=== PATIENT | male | born 1970 | race Caucasian/White ===

== ENCOUNTER 2019-03-31 11:09 | Outpatient (CLI) | payer OTHER, SELFPAY ==
--- NOTE | 2019-03-31 11:21 | XR_ITS ---
WS: [id number] LUMBAR SPINE: 3 VIEWS TECHNIQUE: AP, lateral and L5-S1 spot. HISTORY: LUMBAR BACK PAIN COMPARISON: None available. Mild straightening of the normal lumbar lordosis. L5 retrolisthesis by 3.2 mm. Disc space narrowing i s mild at L5-S1. Endplate osteophytes throughout the lumbar spine and the lower thoracic spine. No fr acture. Bilateral facet joint arthropathy at L5-S1, greatest on the RIGHT. SI joints are symmetric bilaterally. No soft tissue abnormalities. XR/XR lumbar spine 2-3V* [id number] IMPRESSION: 1. No lumbar spine fracture. 2. Mild lumbar spondylosis. 3. L5 retrolisthesis by 3.2 mm.
--- NOTE | 2019-03-31 11:21 | XR_ITS ---
WS: [id number] THORACIC SPINE TECHNIQUE: AP and lateral views are performed. HISTORY: BACK PAIN THORACIC REGION COMPARISON: 07/23/2016 Disc space narrowing and endplate osteophytes throughout the thoracic spine. Most significant in the mid to lower thoracic spine. Very similar in appearance to the prior examination. There is very sligh t LEFT convex curvature of the upper thoracic spine. Pedicles are all identified. XR/XR thoracic spine 3V* [id number] IMPRESSION: 1. No thoracic spine fracture. 2. Moderate to severe spondylitic changes with no progression since 07/23/2016.
== END 2019-03-31 11:10 | disposition home or self-care (01) ==
LOC: RAD 11:13
PROVIDERS: Family Provider Family Medicine; PCP Family Medicine; Visit Provider Family Medicine
DX: M47.896 Other spondylosis, lumbar region (principal); M54.6 Pain in thoracic spine; M54.5 Low back pain
CPT/HCPCS: 72072; 72100

== ENCOUNTER 2019-04-14 13:24 | Outpatient (RCR) | payer OTHER, SELFPAY | END 2019-05-06 23:59 | disposition home or self-care (01) | LOC: SPT 13:24 | PROVIDERS: Family Provider Family Medicine; PCP Family Medicine; Referring Provider Family Medicine; Visit Provider Family Medicine | DX: M54.5 Low back pain (principal) | CPT/HCPCS: 97161 ==

== ENCOUNTER 2019-05-07 06:00 | Outpatient (RCR) | payer OTHER, SELFPAY | END 2019-06-02 23:00 | disposition home or self-care (01) | LOC: SPT 06:00 | PROVIDERS: Family Provider Family Medicine; PCP Family Medicine; Referring Provider Family Medicine; Visit Provider Family Medicine | DX: Z01.89 Encounter for other specified special examinations (principal) ==

== ENCOUNTER 2020-11-04 19:26 | Emergency (ER) | payer OTHER, SELFPAY ==
[2020-11-04 19:43] VITALS: BP 143/82; PULSE 65; TEMP 36.7; O2SAT 95; BMI 41.8
[2020-11-04 20:57] VITALS: BP 130/95; PULSE 56; RESP 18; O2SAT 97
--- NOTE | 2020-11-04 20:57 | ECG_ITS ---
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
--- NOTE | 2020-11-04 21:28 | ED_ITS ---
HPI - General Adult General: Chief complaint: Chest Pain Stated complaint: BACK PAIN RADIATING TO CHEST Time Seen by Provider: 11/04/20 20:57 History of Present Illness: HPI narrative: CC: Back pain HPI: [50]yo patient w/ hx of chronic thoracic back pain x 1 year presenting to the ED with acutely worsening chronic pain. 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 Since then, patient has still had similar pain. Patient went to see multiple providers including sports medicine and physical therapy with minimal improvement in symptoms. Patient has an appointment with his specialist in November but mehdi use of the worsening pain decided come to emergency for further evaluation. Today, patients denies trauma to the back, fever/chill/IVDU, LE weakness, saddle anesthesia/bowel incontinence/bladder incontinence, or hx of recent weight loss or cancer. In addition, he does not have a history of kidney stone or urinary symptoms/hx of UTI. Onset: chronic, acutely worsening symptoms x 1 month Duration: ongoing Location: Thoracic back pain radiating to the chest Severity: moderate Review of Systems Narrative: Constitutional: No fever, no chills. HEENT: No vision changes CV: No chest pain, no palpitations PULM: No cough, no dyspnea. GI: No abdominal pain, no N/V/D. : No dysuria MSKEL: No edema SKIN: No new rashes, no lesions. NEURO: No headache, no focal weakness. HEME: No visible bruises PSYCH: Normal mood BACK: +Thoracic back pain radiating to the chest [facility] ED PFSH: Social History (Updated 11/13/19 @ 12:42 by Gypsy Hoang LPN) Smoking and tobacco status: current every day smoker smokeless tobacco Alcohol intake: never Physical Exam Narrative: EXAM NARRATIVE: Head: Atraumatic Eyes: PERRL, conjunctiva without injection ENT: Mucous membrane moist NECK: Supple without lymphadenopathy LUNGS: CTA CV: RRR ABDOMEN: Soft, nontender in all quadrants, no guarding or rebound tenderness EXTREMITY: Normal ROM, 5/5 strength in hip/knee/ankle f/e bilaterally, sensation intact bilaterally in the LE SKIN: No rash or erythema NEURO: Awake and alert. No focal motor deficits. PSYCH: Normal mood and affect. : No saddle anesthesia BACK: No midline tenderness, no step off, obvious deformity, hip stable, thoracic T12 tenderness to palpation, no step-off, no obvious deformity, no induration/swelling or fluctuance Course Vital Signs: Vital signs: Vital Signs Temperature 98.1 F 11/04/20 19:43 Pulse Rate 62 11/04/20 23:08 Respiratory Rate 18 11/04/20 23:08 Blood Pressure 120/77 11/04/20 23:08 Pulse Oximetry 97 11/04/20 23:08 MDM - General Adult MDM Narrative: Medical decision making narrative: [50]yo patient w/ hx of chronic thoracic bakc pain presenting to the ED with acute worsening over the last month. Neurological exam including LE exam intact. The Patient is able to bear weight on legs and ambulate with moderate pain. No red flags of IVDU/fever, hx or symptomatology of cancer w/ mets to the bones, neurological findings or bowel or bladder incontinence, or acute trauma/fracture of the vertebral columns. No family hx of aortic pathologies or aortic valve issues. [11:00pm] On reassessment, the patient reports the pain is significantly improved with medications. Patient is now able to ambulate in the ED with only mild pain. At the present time, I have discussed the importance for the patient to follow up with orthopedics JAZMINE and the patient agrees. No suspicion for acute cord compression at this time. In terms of his chest pain work-up EKG is nonischemic, troponin within normal limits, chest x-ray without any focal findings. Thoracic spine did not show any signs of acute fracture or injuries. Given longevity of symptoms, do not suspect that this is ACS or thoracic aortic aneurysm. Rx: Tylenol, prednisone, lidocaine patch, menthol cream, and norflex PRN pain. Disposition: Discharge. Patient is given SRP for any focal weakness, intractable pain, fever/chill, any signs of bowel or bladder incontinence. Patient is instructed to follow up with the orthopedics provider. I have provided an additional orthopedic referral for the patient should the patient need it. Patient verbalizes understanding and plans to do so in the next few days. Lab Data: Labs: Lab Results 11/04/20 11/04/20 11/04/20 Range/Units 21:15 21:15 21:15 WBC 9.2 (4.0-10.0) 10^3/ uL RBC 4.76 (4.1-5.3) 10^6/u L Hgb 14.5 (11.7-16.6) g/dL Hct 42.4 (42.0-52.0) % MCV 89.1 (80-94) fl MCH 30.5 (28.0-34.0) pg MCHC 34.2 (30.0-36.0) g/dL RDW 12.6 (12.1-15.1) % Plt Count 211 (130-400) 10^3/c mm MPV 11.6 H (7.4-10.4) fL Neut % (Auto) 42.7 % Lymph % (Auto) 43.5 % [place] % (Auto) 8.9 % Eos % (Auto) 4.2 % Baso % (Auto) 0.4 % Neut # (Auto) 3.92 (1.8-7.7) 10^3/u L Lymph # (Auto) 4.0 (0.8-4.8) 10^3/u L [place] # (Auto) 0.8 (0.2-0.9) 10^3/u L Eos # (Auto) 0.4 (0.0-0.8) 10^3/u L Baso # (Auto) 0.0 (0.0-0.1) 10^3/u L Nucleated RBC % (a uto) 0 % Nucleated RBCs # 0.0 /100WBC Sodium 141 (136-145) mmol/L Potassium 3.8 (3.5-5.1) mmol/L Chloride 105 (98-107) mmol/L Carbon Dioxide 26 (22-29) mmol/L Anion Gap 13.8 (5-19) BUN 15 (6-20) mg/dL Creatinine 0.7 (0.7-1.2) mg/dL GFR Calculation 120.4 (90-130) mL/min Glucose 84 (65-115) mg/dL Calculated Osmolal ity 292 (285-295) mOsm/k g Calcium 8.8 (8.5-10.5) mg/dL Total Bilirubin 0.3 (0.15-1.2) mg/dL AST 17 (0-40) U/L ALT 21 (0-41) U/L Alkaline Phosphata se 67 (40-130) IU/L Troponin T Baselin e 6 (0-15) ng/L Total Protein 6.9 (6.6-8.7) g/dL Albumin 3.9 (3.5-5.2) g/dL Globulin 3.0 (1.3-4.6) g/dL Imaging Data^: Other Imaging: Radiologist's impression: [address] [id number] ReportSigned Patient: Gurmeet Wallis #: [id number]: 1970Acct#:[id number]/Sex: 50 / MADM Date: 11/04/20Loc: ERRoom/Bed:Attending Dr: Ordering Provider/Ordering MD: Karina Kowalski MD Date of Service: 11/04/20 Procedure(s): XR thoracic spine 2V 67865 Accession Number(s): [id number] Report Number: [id number] PROCEDURE INFORMATION: Exam: XR Thoracic Spine Exam date and time: 11/04/2020 9:30 PM Age: 50 years old Clinical indication: Pain in thoracic spine; Additional info: Evaluate for injuries TECHNIQUE: Imaging protocol: XR of the thoracic spine. Views: 2 views. COMPARISON: CR XR thoracic spine 3V* [id number] 03/31/2019 11:26 AM FINDINGS: Bones/joints: No acute fracture. Normal alignment. Moderate multilevel DJD of the thoracic spine. Soft tissues: Unremarkable. XR/XR thoracic spine 2V 90437 IMPRESSION: No acute findings. Dictated By:Mendoza Rios DOSigned By:Mendoza Rios DOSigned Date/Time:11/04/206DD/ [address] [id number] ReportSigned Patient: Gurmeet Wallis #: [id number]: 1970Acct#:[id number]/Sex: 50 / MADM Date: 11/04/20Loc: ERRoom/Bed:Attending Dr: Ordering Provider/Ordering MD: Karina Kowalski MD Date of Service: 11/04/20 Procedure(s): XR chest 2V* [id number] Accession Number(s): [id number] Report Number: [id number] PROCEDURE INFORMATION: Exam: XR Chest Exam date and time: 11/04/2020 9:30 PM Age: 50 years old Clinical indication: Pain; Radiating; Additional info: Evaluate for chest pain TECHNIQUE: Imaging protocol: XR of the chest. Views: 2 views. COMPARISON: CR Chest 2 views* [id number] 03/03/2014 6:02 PM FINDINGS: Lungs: Unremarkable. No consolidation. Pleural spaces: Unremarkable. No pleural effusion. No pneumothorax. Heart/Mediastinum: Unremarkable. No cardiomegaly. Bones/joints: Unremarkable. XR/XR chest 2V* [id number] IMPRESSION: No acute findings. Dictated By:Mendoza Rios DOSigned By:Mendoza Rios DOSigned Date/Time:11/04/202224DD/ 23 Discharge Plan Discharge Patient Disposition: Home Clinical Impression: Back pain Condition: Stable Prescriptions: New lidocaine 5 % adhesive patch,medicated 1 patch topical DAILY PRN (Reason: pain) 30 Days Qty: 30 RF: 0 acetaminophen 500 mg capsule 500 mg PO Q6H PRN (Reason: pain) 10 Days Qty: 60 RF: 0 Biofreeze (menthol) 4 % gel 1 applic topical DAILY PRN (Reason: pain) 10 Days Qty: 89 RF: 0 orphenadrine citrate 100 mg tablet extended release 100 mg PO BID PRN (Reason: pain) 10 Days Qty: 20 RF: 0 Discharge Orders: Discharge ED (Routine); Ordered 11/04/20 Ordered By: Karina Kowalski Referrals: Wilfredo Keita MD [Primary Care Provider] - Discharge Diet: Advance as tolerated Discharge Activity: Resume usual activity Patient Instructions: Back Pain (ED) Activity Restrictions/Additional Instructions: Please follow-up with your provider in November for evaluation of your pain. Please get an ergonomic lumbar back and glute support for long distance driving. Please take these medication as needed for pain. Norflex is a medication you shouldn't take while driving. Stand Alone Forms: Work/School Release Coding Level of Care Code ED Transportation Economics Teacher for Ciarra Johnson
--- NOTE | 2020-11-04 21:30 | XRR_ITS ---
PROCEDURE INFORMATION: Exam: XR Thoracic Spine Exam date and time: 11/04/2020 9:30 PM Age: 50 years old Clinical indication: Pain in thoracic spine; Additional info: Evaluate for injuries TECHNIQUE: Imaging protocol: XR of the thoracic spine. Views: 2 views. COMPARISON: CR XR thoracic spine 3V* [id number] 03/31/2019 11:26 AM FINDINGS: Bones/joints: No acute fracture. Normal alignment. Moderate multilevel DJD of the thoracic spine. Soft tissues: Unremarkable. XR/XR thoracic spine 2V 72652 IMPRESSION: No acute findings.
--- NOTE | 2020-11-04 21:30 | XRR_ITS ---
PROCEDURE INFORMATION: Exam: XR Chest Exam date and time: 11/04/2020 9:30 PM Age: 50 years old Clinical indication: Pain; Radiating; Additional info: Evaluate for chest pain TECHNIQUE: Imaging protocol: XR of the chest. Views: 2 views. COMPARISON: CR Chest 2 views* [id number] 03/03/2014 6:02 PM FINDINGS: Lungs: Unremarkable. No consolidation. Pleural spaces: Unremarkable. No pleural effusion. No pneumothorax. Heart/Mediastinum: Unremarkable. No cardiomegaly. Bones/joints: Unremarkable. XR/XR chest 2V* [id number] IMPRESSION: No acute findings.
[2020-11-04 21:31] LABS: Basophils % 0.4 %; Eosinophils # 0.4 10^3/uL (0.0-0.8); Eosinophils % 4.2 %; Hematocrit 42.4 % (42.0-52.0); Hemoglobin 14.5 g/dL (11.7-16.6); Lymphocytes % 43.5 %; Mean Corpuscular HGB Conc 34.2 g/dL (30.0-36.0); Mean Corpuscular Hemoglobin 30.5 pg (28.0-34.0); Mean Corpuscular Volume 89.1 fl (80-94); Mean Platelet Volume 11.6 fL (7.4-10.4); Monocytes # 0.8 10^3/uL (0.2-0.9); Monocytes % 8.9 %; Neutrophils # 3.92 10^3/uL (1.8-7.7); Neutrophils % 42.7 %; Nucleated Red Blood Cells % 0 %; Platelet Count 211 10^3/cmm (130-400); Red Blood Count 4.76 10^6/uL (4.1-5.3); Red Cell Distribution Width 12.6 % (12.1-15.1); White Blood Count 9.2 10^3/uL (4.0-10.0)
[2020-11-04] MEDS: acetaminophen 500 mg Tablet PO (21:45)
[2020-11-04] MEDS: predniSONE 20 mg Tablet 60 MG PO (21:45)
[2020-11-04 21:53] LABS: Alanine Aminotransferase 21 U/L (0-41); Albumin Level 3.9 g/dL (3.5-5.2); Alkaline Phosphatase 67 IU/L (40-130); Anion Gap 13.8 (5-19); Aspartate Amino Transferase 17 U/L (0-40); Blood Urea Nitrogen 15 mg/dL (6-20); Calcium 8.8 mg/dL (8.5-10.5); Carbon Dioxide 26 mmol/L (22-29); Chloride 105 mmol/L (98-107); Glomerular Filtration Rate 120.4 mL/min (90-130); Glucose 84 mg/dL (65-115); Osmolality Calculated 292 mOsm/kg (285-295); Potassium 3.8 mmol/L (3.5-5.1); Sodium 141 mmol/L (136-145); Total Bilirubin 0.3 mg/dL (0.15-1.2); Total Protein 6.9 g/dL (6.6-8.7)
[2020-11-04 21:54] LABS: Troponin(5th) Baseline 6 ng/L (0-15)
[2020-11-04] MEDS: ketorolac 30 mg/mL INJ IVP (21:54)
[2020-11-04] MEDS: lidocaine 5% Patch 1 PATCH TOPICAL (21:54)
[2020-11-04 23:08] VITALS: BP 120/77; PULSE 62; RESP 18; O2SAT 97
--- NOTE | 2020-11-05 09:23 | DCPLANNER ---
Addendum entered by Tracy Martinez 11/06/20 10:07: When lining caser made referral to ortho, lining caser told the clinic that ER physician would like patient referred to physical therapy. bridge club manager was not left an order for this, when being seen if physician feels that patient could benefit from physical therapy could the ortho physician refer patient to physical therapy. Original Note: bridge club manager had message to schedule a follow up appointment for patient with ortho. bridge club manager called the ortho clinic, spoke with Bette, gave clinic patients information. bridge club manager was told that patients information would be printed and reviewed. Clinic will call patient with appointment information.
--- NOTE | 2020-11-06 07:50 | DCPLANNER ---
Patient has a follow up appointment scheduled for , November 28, 2020 at 3:[address] Tai. Clinic will call patient with appointment information.
--- NOTE | 2020-11-29 09:06 | DCPLANNER ---
Patient had a follow up appointment scheduled for 11.28.20 with ortho - patient did attend appointment.
== END 2020-11-04 23:05 | disposition home or self-care (01) ==
PROVIDERS: Emergency Medicine; Emergency Provider Emergency Medicine; PCP Family Medicine
DX: M54.9 Dorsalgia, unspecified (principal); F17.210 Nicotine dependence, cigarettes, uncomplicated
CPT/HCPCS: 71046; 72070; 80053; 84484; 85025; 93005; 96374; 99284; J1885; J7512

== ENCOUNTER → 2020-11-28 16:03 | Outpatient (BNVA) | payer OTHER, SELFPAY | PROVIDERS: PCP Family Medicine; Referring Provider Emergency Medicine; Visit Provider Orthopaedic Surgery | DX: M47.816 Spondylosis without myelopathy or radiculopathy, lumbar region (principal) | CPT/HCPCS: 72110 ==

== ENCOUNTER 2020-12-27 06:51 | Outpatient (CLI) | payer OTHER, SELFPAY ==
--- NOTE | 2020-12-27 07:15 | MR_ITS ---
WS: [id number] MRI LUMBAR SPINE NONCONTRAST TECHNIQUE: Sagittal T1, T2 and STIR imaging. Axial T1 and T2 imaging. CLINICAL INFORMATION: M54.9 - Dorsalgia, unspecified COMPARISON: None. FINDINGS: Mild lumbar curve. No acute compression. No high-grade central canal stenosis. Disc bulging worse at L3-L5. No significant disc bulging. Moderate facet arthropathy. Spinal canal and foramen are patent. L1-L2: Normal L2-L3: Minimal annular bulging. Moderate facet arthropathy. Spinal canal and foramen are patent. Smal l left foraminal protrusion with mild left foraminal narrowing. L3-L4: Mild annular bulging with a small shallow right subarticular protrusion. This impinges the tra versing right L4 nerve root in the subarticular recess. Mild central canal stenosis. Mild right and n o significant left foraminal narrowing. Mild central canal stenosis. Moderate facet arthropathy. L4-L5: Mild annular bulging with a shallow central protrusion. Slight impingement traversing L5 nerve roots, right greater than left. Mild central canal stenosis. Moderate facet arthropathy. Mild bilate ral foraminal narrowing. L5-S1: Shallow right pericentral protrusion L5-S1 impinges the traversing right S1 nerve root in the subarticular recess. Mild right foraminal narrowing. Left foramen is patent. Moderate facet arthropat hy. Spinal canal is patent. Visualized pelvic bony structures: Normal. Paravertebral soft tissues: Normal. MR/MR lumbar spine wo con* [id number] IMPRESSION: 1. Mild lumbar curve. No acute compression. Mild disc bulging worse at L3-L5. 2. Shallow right subarticular protrusion L3-4 impinges the traversing right L4 nerve root in the subarticular recess. Correlation for right L4 nerve root sym ptoms. Mild central canal stenosis. Small annular fissure at this level. Mild r ight foraminal narrowing. 3. Shallow broad-based central protrusion L4-5 with a small annular fissure. I mpingement traversing right greater than left L5 nerve roots. Mild right greate r than left foraminal narrowing. 4. Shallow right pericentral protrusion L5-S1 impinges the traversing S1 nerve root in the subarticular recess. Moderate right foraminal narrowing at this le may. 5. Moderate facet arthropathy L3-L5. 6. Tiny left foraminal protrusion L2-3 slightly contacts the exiting left L2 n erve root laterally.
== END 2020-12-27 06:52 | disposition home or self-care (01) ==
LOC: RADSHAW 06:52
PROVIDERS: PCP Family Medicine; Visit Provider Orthopaedic Surgery
DX: M51.26 Other intervertebral disc displacement, lumbar region (principal); M47.816 Spondylosis without myelopathy or radiculopathy, lumbar region; M51.27 Other intervertebral disc displacement, lumbosacral region
CPT/HCPCS: 72148

== ENCOUNTER → 2021-01-15 08:30 | Outpatient (BNVA) | payer OTHER, SELFPAY | PROVIDERS: PCP Family Medicine; Referring Provider Orthopaedic Surgery; Visit Provider Anesthesiology Pain Medicine | DX: G89.29 Other chronic pain (principal); M51.16 Intervertebral disc disorders with radiculopathy, lumbar region; M47.816 Spondylosis without myelopathy or radiculopathy, lumbar region; M48.061 Spinal stenosis, lumbar region without neurogenic claudication; M79.604 Pain in right leg; M79.605 Pain in left leg; F17.220 Nicotine dependence, chewing tobacco, uncomplicated; Z79.899 Other long term (current) drug therapy | CPT/HCPCS: 99205 ==

== ENCOUNTER → 2021-01-16 14:45 | Outpatient (BNVA) | payer OTHER, SELFPAY | PROVIDERS: PCP Family Medicine; Visit Provider Anesthesiology Pain Medicine | DX: M54.16 Radiculopathy, lumbar region (principal); F17.220 Nicotine dependence, chewing tobacco, uncomplicated | CPT/HCPCS: 64483; 64484; J1100; J3490 ==

== ENCOUNTER 2021-05-01 10:27 | Emergency (ER) | payer OTHER, SELFPAY ==
[2021-05-01 10:34] VITALS: BP 146/98; PULSE 62; RESP 16; TEMP 36.4; O2SAT 98; BMI 42.8
[2021-05-01 10:45] VITALS: BP 141/90; PULSE 64; RESP 19; O2SAT 98
--- NOTE | 2021-05-01 10:46 | CT_ITS ---
WS: [id number] CT HEAD NONCONTRAST HISTORY: fall and hit back of head. no loc. Concussion symptoms TECHNIQUE: Contiguous axial imaging performed through the brain in 2.5 mm imaging. Bone and soft tiss ue windows. Sagittal and coronal reformats reviewed. All CT scans at [facility] use at least one of these dose optimization techniques: automated exposure control; mA and/or kV adjustment per pa tient size (includes targeted exams where dose is matched to clinical indication); or iterative recon struction. DLP: 1046.73 mGy.cm COMPARISON: None available. No acute intracranial hemorrhage, midline shift or mass effect. No atrophy or prior infarcts or herniation. Ventricles: Normal size with no hydrocephalus. Paranasal sinuses: Mild mucoperiosteal thickening in the ethmoid air cells. No air-fluid levels. Mastoid air cells: Well pneumatized. Calvarium and scalp: No skull fracture. Small scalp hematoma towards the vertex. CT/CT head wo con* [id number] IMPRESSION: 1. No acute intracranial hemorrhage or edema. 2. No skull fracture. 3. Small scalp hematoma towards the vertex.
--- NOTE | 2021-05-01 10:48 | W.ED.FALL ---
HPI - Fall General: Chief Complaint: Fall Stated Complaint: Fall Time Seen by Provider: 05/01/21 10:37 History of Present Illness: Patient is a 50-year-old male comes to the ED after having a fall. Injury occurred approximately 2 hours before arrival. Patient says he was stepping out of his truck in a parking lot and immediately slipped due to the ice falling backwards and hitting the back of his head on the icy parking lot. Denies any loss of consciousness. He felt a little dazed immediately afterwards. He also had just some very slight bleeding from his nose that resolved within a couple minutes. He now has a 10 out of 10 headache along with nausea. He also reports a little bit of numbness in his fingertips of left hand. Denies any neck pain, vomiting, dizziness, vision changes, weakness to 1 side of body or face, or any other numbness or tingling to the body. He took 600 mg of ibuprofen before coming to the ED. Associated symptoms-after fall: Reports headache(s); Denies abdominal pain, chest pain, hematuria or neck pain Review of Systems Const: Denies: fever(s), chills or fatigue Eyes: Denies: change in vision or eye discomfort ENMT: Denies: throat pain, odynophagia, nasal discharge or nasal congestion Card: Denies: chest pain, palpitations, edema, swelling of feet/ankles, dyspnea on exertion or orthopnea Resp: Denies: dyspnea, productive cough or non-productive cough GI: Denies: abdominal pain, nausea, vomiting, diarrhea, constipation or hematochezia : Denies: flank pain, difficulty urinating, dysuria or hematuria Musc: Denies: neck pain, back pain or extremity swelling Skin/Breast: Denies: rash or new lesions Neuro: Reports: headache(s) and numbness in extremities (fingertips of left hand); Denies: weakness in extremities [facility] ED PFSH: Medical History No pertinent family history No pertinent past medical history Surgical History H/O hand surgery H/O left knee surgery meniscus H/O shoulder surgery rt shoulder Family History Mother Diabetes Denies family history of Anesthesia complication Bleeding disorder Social History Smoking and tobacco status: current every day smoker smokeless tobacco Alcohol intake: never Caregiver/support person: Yes Lives independently: Yes History of recent travel: No Physical Exam Const: COMMON NORMALS: no acute distress, patient oriented x3, healthy appearing and alert GENERAL APPEARANCE: cooperative and comfortable HENMT: COMMON NORMALS: normocephalic and Normal external nose present HEAD & SCALP: normocephalic, abrasion left frontal Head abrasion size: 2 cm (linear abrasion), contusion left occipital Head contusion size: 1 cm and scalp tenderness (Tenderness over contusion on left occipital region); no Sr's sign, no laceration and no raccoon eyes NOSE: Normal external nose present, Normal nares present, Normal septum present and No nasal discharge present MOUTH: Normal oral and palatal mucosa present THROAT: posterior oropharynx normal and uvula midline Eye: COMMON NORMALS: Equal, round and reactive pupils present, EOMs intact bilaterally and conjunctivae normal CONJUNCTIVA: Yes conjunctivae normal PUPIL: Yes Equal, round and reactive pupils present Neck/C-Spine: COMMON NORMALS: supple GENERAL: Yes normal visual inspection CERVICAL SPINE: Yes cervical ROM normal, No Cervical spine tenderness and No Paracervical muscle tenderness Resp: COMMON NORMALS: normal respiratory effort, No retractions, No use of accessory muscles and clear to auscultation bilaterally AUSCULTATION: clear to auscultation bilaterally Cardio: COMMON NORMALS: regular rate, regular rhythm, S1 normal heart sound present, S2 normal heart sound present, No gallops present (Cardio), No clicks present (Cardio), No murmurs present (Cardio) and Peripheral pulses 2+ throughout RATE: regular rate RHYTHM: regular rhythm HEART SOUNDS: S1 normal heart sound present and S2 normal heart sound present PERIPHERAL PULSES: Peripheral pulses 2+ throughout GI: COMMON NORMALS: Normal to inspection, nondistended, normoactive bowel sounds present, Soft to palpation, non-tender and no masses PALPATION: Yes Soft to palpation : COMMON NORMALS: Yes no CVA tenderness BLADDER/KIDNEY EXAM: Yes no CVA tenderness Back/Pelvis: COMMON NORMALS: no CVA tenderness Extremity: COMMON NORMALS: normal to inspection Neuro: COMMON NORMALS: patient oriented x3, CN's II-XII intact bilaterally, moves all extremities, no focal motor deficits and no sensory deficits noted SENSORIUM/ORIENTATION: Yes alert SENSORY EXAM: Yes extremities (intact) MOTOR EXAM: 5/5 motor strength present throughout Skin: GENERAL SKIN EXAM: dry skin Course Vital Signs: Vital signs: Vital Signs Temperature 97.6 F 05/01/21 10:34 Pulse Rate 56 L 05/01/21 12:25 Respiratory Rate 18 05/01/21 12:25 Blood Pressure 123/65 05/01/21 12:25 Pulse Oximetry 97 05/01/21 12:25 MDM - Fall Medical Decision Making Patient is a 50-year-old male comes to the ED with concussion symptoms. Patient stepped to the ice today from his truck and fell hitting the back of his head. Vital stable. Neuro exam showed no deficits. CT of head showed no acute findings. Patient was diagnosed with a concussion discharged home. He was told to follow-up with his PCP in the next 5 to 7 days for reevaluation. Return ED precautions given. Patient stood agree with plan. Lab Data Radiology Impressions Head CT 05/01/21 10:46 IMPRESSION: 1. No acute intracranial hemorrhage or edema. 2. No skull fracture. 3. Small scalp hematoma towards the vertex. Discharge Plan Discharge Patient Disposition: Home Clinical Impression: Concussion Qualifiers: Encounter type: initial encounter Loss of consciousness presence/duration: without LOC Qualified Code(s): S06.0X0A - Concussion without loss of consciousness, initial encounter Condition: Stable Prescriptions: No Action ibuprofen 200 mg tablet 600 mg PO .hs PRN0RF diphenhydramine HCl [Benadryl] 25 mg capsule 25 - 50 mg PO .hs PRN0RF gabapentin 300 mg capsule 300 mg PO TID Qty: 90 0RF tizanidine 4 mg tablet 4 mg PO BID PRN (Reason: muscle spasticity) Qty: 60 0RF lidocaine 5 % adhesive patch,medicated 3 patch topical DAILY Qty: 30 3RF Rx Instructions: leave on most painful area for up to 12 hrs Discharge Orders: Discharge ED (Routine); Ordered 05/01/21 Ordered By: Wilfredo Castillo Referrals: Wilfredo Keita MD [Primary Care Provider] - Discharge Diet: Regular Discharge Activity: Increase activity as tolerated Patient Instructions: Concussion (ED) Activity Restrictions/Additional Instructions: Follow-up with primary care physician in the next 7 to 10 days for reevaluation. Take medications as prescribed. Return to the ER or your medical provider if condition worsens. Please read and understand discharge instructions. Thank you for choosing [facility] for your healthcare needs today. Please realize this is an emergency room and that we are providing you with a medical screening exam and this may not be complete and all inclusive of all the testing and or work up that you may need to determine your ailment or severity of your illness. It is very important that you follow up as instructed or that you return to the Emergency Department should you have concerns or if your condition changes or worsens in any way. Coding Level of Care Code ED Mortgage Loan Interviewer for Ciarra Johnson Exam Comprehensive
[2021-05-01] MEDS: HYDROcodone-acetaminophen 7.5-325 mg Tablet 1 TAB PO (12:01)
[2021-05-01 12:25] VITALS: BP 123/65; PULSE 56; RESP 18; O2SAT 97
== END 2021-05-01 12:26 | disposition home or self-care (01) ==
PROVIDERS: Emergency Provider Physician Assistant; PCP Family Medicine
DX: S06.0X0A Concussion without loss of consciousness, initial encounter (principal); F17.210 Nicotine dependence, cigarettes, uncomplicated; W00.0XXA Fall on same level due to ice and snow, initial encounter; Y92.481 Parking lot as the place of occurrence of the external cause
CPT/HCPCS: 70450; 99283

== ENCOUNTER 2021-05-02 08:05 | Outpatient (CLI) | payer OTHER, SELFPAY ==
[2021-05-02 09:15] VITALS: BMI 41.8
--- NOTE | 2021-05-02 09:15 | ECG_ITS ---
[facility] Test Date: 2021-05-02 Pat Name: Adonay Wallis Department: Room: Gender: Male Studio Data Analyst: Alyse Silverio : 1970 Requested By: Wilfredo Montano Order Number: [id number] David MD: Whit Hoskins M.D. Interpretive Statements NAME OF STUDY: LEXISCAN SESTAMIBI STRESS TEST INDICATION: Chest Pain, PROCEDURE: At the baseline, the EKG revealed normal sinus rhythm with a normal ST Ts. Minimal left axis deviation. The baseline blood pressure was 115/65 mm Hg with a heart rate of 63 beats/min. Lexiscan was infused over a period of 20 seconds. A total of 0.4 milligrams of Lexiscan was infused. The stress phase was continued for a total of 5 minutes. Heart rate at the end of the stress phase was 83 with a blood pressure 115/65. The EKG at the peak infusion revealed no significant changes. Sestamibi was injected 20 seconds after the Lexiscan infusion. Blood pressure at the end of the recovery phase was 114/71 with a heart rate of 78 per minute. CONCLUSION: 1. No significant EKG changes with the LexiScan infusion 2. No LexiScan induced chest pain or cardiac arrhythmia 3. Normal blood pressure and heart rate response 4. Sestamibi/sestamibi perfusion scan pending; see separate report. Electronically Signed On 05-02-2021 11:14:43 ASSISTANT SCIENTIST by Whit Hoskins M.D. [id number]
--- NOTE | 2021-05-02 09:16 | NMCV_ITS ---
NM evelyn perf SPECT r/s* [id number] Adonay Wallis Age: 50 Gender: M : 1970 Exam Date: 05/02/2021 09:37 Ordering Phys: Wilfredo Keita MD Technologist: IRENE Vernon Exam Location: [facility] Indications: CHEST PAIN/ LOW BP STRESS TEST Please see separate stress test report in Eph[facility]any for full findings IMAGE PROTOCOL Rest/Stress 1 Lexiscan Day Radiopharmaceutical Dose (mCi) Administration Site Administered by Rest: Tc-99m 11.0 IV IRENE Hooper Sestamibi Stress:Tc-99m 32.7 IV IRENE Vernon Sestamianastasiya Rest: 02-May-2021 60 Discovery 630 Stress: 02-May-2021 30 Discovery 630 0.4mg Lexiscan. Images obtained in supine and prone position. SPECT RESULTS Technical Quality: Excellent Raw Data Analysis: Normal Image Corrections: No attenuation or motion correction applied Summed Stress Score: 6 Summed Rest Score: 10 Summed Difference Score: 1 PERFUSION FINDINGS Small to moderate area of moderately decreased tracer uptake in the mid inferolateral, apical lateral, apical inferior and LV apex. Subtle area of reversibility was noted in the LV apex FUNCTIONAL RESULTS (calculated via Gated SPECT) Stress Image LV EF (%): 71 Stress EDV (mL):154 TID: 0.91 Stress ESV (mL):45 FUNCTIONAL FINDINGS: Segmental wall motion analysis revealing no gross wall motion abnormalities IMPRESSIONS 1. Myocardial perfusion imaging revealing small to moderate area of persistent decreased tracer uptake in the inferolateral, inferior and apical regions with a subtle area of reversibility in the LV apex, suggesting myocardial scarring in the distribution of the distal RCA/circumflex artery with very small area of jaime-infarction ischemia. 2. Normal LV ejection fraction of 71%. 3. LV wall motion analysis revealing no gross wall motion abnormalities. 4. Normal LV volume. No similar previous studies are available for comparison Dr Whit Hoskins MD FACC (Electronically Signed) Final Date: 02 May 2021 11:41 S
[2021-05-02 10:19] VITALS: BP 114/71; PULSE 80
[2021-05-02] MEDS: regadenoson 0.4 Mg/5 ml Syringe IVP (10:21)
== END 2021-05-02 08:06 | disposition home or self-care (01) ==
LOC: RAD 08:06 → CDL 09:10
PROVIDERS: PCP Family Medicine; Visit Provider Family Medicine
DX: R07.9 Chest pain, unspecified (principal); I95.9 Hypotension, unspecified
CPT/HCPCS: 78452; 93017; A9500; J2785

== ENCOUNTER 2021-05-29 05:54 | Outpatient (CLI) | payer OTHER, SELFPAY ==
[2021-05-27 11:43] LABS: Basophils % 0.5 %; Eosinophils # 0.1 10^3/uL (0.0-0.8); Hematocrit 44.9 % (42.0-52.0); Hemoglobin 15.4 g/dL (11.7-16.6); Lymphocytes # 1.8 10^3/uL (0.8-4.8); Lymphocytes % 21.4 %; Mean Corpuscular HGB Conc 34.3 g/dL (30.0-36.0); Mean Corpuscular Hemoglobin 30.4 pg (28.0-34.0); Mean Corpuscular Volume 88.6 fl (80-94); Mean Platelet Volume 10.6 fL (7.4-10.4); Monocytes # 0.6 10^3/uL (0.2-0.9); Neutrophils # 5.72 10^3/uL (1.8-7.7); Neutrophils % 69.7 %; Nucleated Red Blood Cells % 0 %; Platelet Count 234 10^3/cmm (130-400); Red Blood Count 5.07 10^6/uL (4.1-5.3); Red Cell Distribution Width 12.6 % (12.1-15.1); White Blood Count 8.2 10^3/uL (4.0-10.0)
[2021-05-27 11:56] LABS: INR 1.01 (0.83-1.21); Prothrombin Time (Patient) 13.6 Seconds (12.0-15.1)
[2021-05-27 12:30] LABS: Anion Gap 14.1 (5-19); Blood Urea Nitrogen 12 mg/dL (6-20); Carbon Dioxide 26 mmol/L (22-29); Chloride 103 mmol/L (98-107); Glomerular Filtration Rate 120.4 mL/min (90-130); Glucose 126 mg/dL (65-115); Osmolality Calculated 289 mOsm/kg (285-295); Potassium 4.1 mmol/L (3.5-5.1); Sodium 139 mmol/L (136-145)
[2021-05-27 14:15] LABS: Adenovirus Not Detected (NOT DETECT); Chlamydia Pneumoniae Not Detected (NOT DETECT); Coronavirus 229E,HKU1,NL63,OC4 Not Detected (NOT DETECT); Human Metapneumovirus Not Detected (NOT DETECT); Human Rhinovirus/Enterovirus Not Detected (NOT DETECT); Influenza A Not Detected (NOT DETECT); Influenza A H1 Not Detected (NOT DETECT); Influenza A H1-2009 Not Detected (NOT DETECT); Influenza A H3 Not Detected (NOT DETECT); Influenza B Not Detected (NOT DETECT); Mycoplasma Pneumoniae Not Detected (NOT DETECT); Parainfluenza Virus Type 1 Not Detected (NOT DETECT); Parainfluenza Virus Type 2 Not Detected (NOT DETECT); Parainfluenza Virus Type 3 Not Detected (NOT DETECT); Parainfluenza Virus Type 4 Not Detected (NOT DETECT); Respiratory Syncytial Virus A Not Detected (NOT DETECT); Respiratory Syncytial Virus B Not Detected (NOT DETECT); SARS-COV-2 Not Detected (NOT DETECT)
[2021-05-28 08:13] VITALS: BMI 43.2
[2021-05-29] VITALS (15 sets, daily range): BP systolic 99–143; BP diastolic 71–104; PULSE 50–73; RESP 8–21; TEMP 36.6; O2SAT 93–97; BMI 43.2
[2021-05-29] MEDS: diphenhydrAMINE 50 mg Capsule PO (06:30)
--- NOTE | 2021-05-29 07:00 | XACV_ITS ---
Exam Room: 2 Ht: 180 cm Wt: 141 kg BSA: 2.72 m2 Gender: Male : 1970 Exam Priority: Routine Procedure(s): Procedure Description: Diagnostic procedure Procedure Description: Left Heart Catheterization Procedure Description: Left ventriculography Procedure Description: Coronary Angiography Diagnostic Cath Status: Elective Diagnostic Findings * INDICATION: Chest pain/abnormal stress test. * No disease noted in the Left Main, Left Anterior Descending, Right, or Circumflex coronary arteries. * Coronary angiography shows right dominance. Conclusions 1. No disease noted in the Left Main, Left Anterior Descending, Right, or Circumflex coronary arteries. 2. Normal left ventricular systolic function. Ejection fraction of 55%. Recommendations * Aggressive risk factor control. * Likely symptoms secondary to microvascular dysfunction. We will start long-acting nitrates. * Outpatient cardiology follow-up in 1 month. Interventional RX Recommendation: medical therapy and/or counseling Diagnostic RX Recommendation: medical therapy and/or counseling Anticoagulation: Heparin Ventriculography Ejection Fraction: 55.0 % Pressures Phase:Rest AO : 101 / 70 ( 86 ) @ 8:46:00 AM 111 / 62 ( 86 ) @ 8:51:00 AM 111 / 69 ( 87 ) @ 8:51:00 AM LV : 123 / -5 / 12 @ 8:50:00 AM 116 / -3 / 13 @ 8:51:00 AM 120 / -5 / 11 @ 8:51:00 AM Valves Phase:DefaultPhase AV : 9.0 @ 7:56:23 AM AV Mean Gradient: 17.0 @ 7:56:23 AM Clinical Evaluation EBL: 5mL-10mL Procedural Details Procedure Consent Obtained. Admit Source: Out Patient. Pre-Procedure Time Out. Identified patient by full name and date of as verbalized by the patient/guarantor. Does the consent match the physician's order: Yes. Accurate & Complete Informed Consent: Yes. Inpatient/Outpatient History & Physical on Chart: Yes. If H&P is completed, is and addenduem needed: N/A; If yes, is the addendum complete: N/A. Visualize and Verify Site with Patient/Guarantor: N/A. Relevant Radiology Images available: N/A. Pre-op teaching completed and patient verbalized understanding. The risks, benefits, and alternatives of sedation and/or procedure were discussed by physician. The patient agrees to continue. Procedure started. [facility] Clinical Fraility Score: 2: Well. Engineering Psychologist Indications: Worsening Angina. Chest Pain Symptom Assessment: Atypical Angina. Correct patient, site and procedure confirmed by cath team. Current diagnosis: Chest Pain. PERRLA. Strong, equal hand silver plater bilaterally. Lungs clear x 5 lobes. IV Site on Arrival: 20 gauge in the left anticubital. IV Fluids: 0.9% NaCl at KVO. 0 mL infused prior to labor relations supervisor. Pre Procedural Pulses: bilateral radial was 3+. Pre Procedural Pulses: bilateral dorsalis pedis was 2+. Oxygen started at 2liters/min via nasal canula. right groin was prepped with chloroprep then draped in the usual sterile fashion. right radial was prepped with chloroprep then draped in the usual sterile fashion. Baseline sample Acquired. HR: 50 BPM. Physician notified. Physician arrived. Physician scrubbed in. Immediate Pre-Procedure Time Out. Correct Patient: Yes; Correct Procedure: Yes; Correct Site: Yes; Correct Patient Position: Yes; Correct Supplies: Yes; Dried Flammable Prep: Yes; Blood Products Available: N/A;. Lidocaine 1% infiltrated to the right radial. Arterial access obtained. A 6 estonian TIG catheter in over wire. Multiple views taken of left coronary artery. Catheter redirected to the RCA. Multiple views taken of right coronary artery. Catheter out. A 5 estonian Angled Pig catheter in over wire. EDP Sample taken: LV 123/-6,12; HR: 56 BPM; SpO2: 97%. LV gram performed in RANDALL @ 10 mL/second for a total of 30 mL. EDP Sample taken: LV 116/-4,13; HR: 54 BPM; SpO2: 98%. Pullback taken: LV 120/-6,11; AO 111/62(86); Mean: 17mmHg, Peak to Peak: 9mmHg, SEP: 6sec/min; HR: 56 BPM; SpO2: 98%. Catheter out. Post Procedure: Pulses reassessed and unchanged. PERRLA. Strong, equal hand silver plater bilaterally. No VTE prophylaxis required. Medication's Wasted: Lidocaine 1% = 18 ml. Medication's Wasted: Heparin = 1000 u. Medication's Wasted: Nitro = 49.8 mg. Total IV fluids: 26 mL. Complications: none. Estimated blood loss: 5mL-10mL. Responsiveness - Normal response to verbal stimuli; alert and oriented, PERRLA. Airway - Unaffected, no intervention required; spontaneous ventilation. Circulation: W/N/L, pulses unchanged. Nausea/Vomiting: No. Procedure completed. Patient transferred by wheelchair to CPRU. Post-op diagnosis: Non Obstructive CAD. A TR Band was successful obtaining hemostatsis at the Right Radial artery insertion site. Vital chart was stopped. Access Site Site: Right Radial artery Sheath Size: 6 Fr Hemostasis Method: TR Band Hemostasis Success: Successful Procedure Medications Start: 7:33 AM Stop: 7:33 AM Medication: Fentanyl Amount: 50 mcg Route: I.V. Start: 7:33 AM Stop: 7:33 AM Medication: Versed Amount: 1 mg Route: I.V. Start: 7:37 AM Stop: 7:37 AM Medication: Versed Amount: 1 mg Route: I.V. Start: 7:37 AM Stop: 7:37 AM Medication: Fentanyl Amount: 50 mcg Route: I.V. Start: 7:40 AM Stop: 7:40 AM Medication: Nitrogylcerin Amount: 200 mcg Route: I.A. Start: 7:41 AM Stop: 7:41 AM Medication: Heparin Amount: 5000 units Route: I.V. I, the attending physician, have reviewed and verified all procedure medications. Yes, all medications given per verbal order History/Risk Factors Hypertension: No Dyslipidemia: No Peripheral Arterial Disease (PAD): No Myocardial Infarction (NC): No Obesity: Yes Renal Disease: No Tobacco Use: Current/Recent(w/in 1 year) Prior Interventions PCI: No CABG: No Valve Surgery: No Report Signatures Finalized by Travis Valera MD on 06/05/2021 10:55 PM
--- NOTE | 2021-05-29 07:34 | W.PM.OPSUD ---
Surgery/Procedure H&P Update DATE OF PROCEDURE: May 29, 2021 DATE H&P PERFORMED: 05/22/21 H&P UPDATE INFORMATION: I have reviewed H&P completed within last 30 days, I have examined patient prior to procedure and No changes to prior documentation PREOP DIAGNOSIS: Chest pain/abnormal stress test PRIMARY INDICATION FOR PROCEDURE: Chest pain/abnormal stress test PLANNED PROCEDURE: Operation Date: 05/29/21 07:00 Proposed Procedures p Cardiac Catheterization(Left) - Travis Valera M.D Possible percutaneous coronary intervention PATIENT REASSESSED PRIOR TO SEDATION, WITH NO CHANGE NOTED: Yes PHYSICAL EXAM: alert, oriented x 3, clear to auscultation bilaterally and regular rate & rhythm AIRWAY EVAL/ANESTHESIA PLAN: ASA II, Monitored Anesthesia, Local Anesthesia, Risks, benefits & alternatives of sedation and/or procedure discussed and Patient agrees to continue as planned
--- NOTE | 2021-05-29 08:40 | PC.NURSE ---
received pt from labor custodian post diagnostic [facility]. pt alert and oriented. pt complains of no pain. tr band on right wrist with palpable distal pulse. pt hooked to vitals machine and will be monitored per protocol. pt explained the recovery process and stated he understood. also explained the restrictions of right wrist and again stated he understood.
== END 2021-05-29 11:47 | disposition home or self-care (01) ==
PROVIDERS: PCP Family Medicine; Visit Provider Internal Medicine
DX: R94.39 Abnormal result of other cardiovascular function study (principal); R07.9 Chest pain, unspecified; E66.9 Obesity, unspecified; Z68.41 Body mass index [BMI] 40.0-44.9, adult; F17.220 Nicotine dependence, chewing tobacco, uncomplicated
CPT/HCPCS: 36415; 80048; 85025; 85610; 87635; 93452; 93458; C1769; C1887; C1894; J1644; J2250; J3010; J3490; J7030; Q0163; Q9967

== ENCOUNTER 2021-06-07 08:00 | Outpatient (CLI) | payer OTHER, SELFPAY ==
[2021-06-07 10:19] LABS: Side 1 141; Side 2 143; Sperm Count 14.2 mill/mL (40-160)
[2021-06-07 10:20] LABS: PH Semen 8.5 (7.0-8.0); Side WITHIN 10% 1
[2021-06-07 10:21] LABS: Viscosity Semen Droplets
[2021-06-07 10:22] LABS: Sperm Immotility 40 % (50-60); Sperm Non-Progressive Motility 10 % (5-10); Sperm Progressive Motility 50 % (31-34); White Blood Count Semen 0-4 /hpf
[2021-06-07 10:23] LABS: Epithelial Count Semen 0-4 /hpf; Pathology Referral Yes
== END 2021-06-07 08:01 | disposition home or self-care (01) ==
PROVIDERS: PCP Family Medicine; Visit Provider Obstetrics & Gynecology
DX: Z31.69 Encounter for other general counseling and advice on procreation (principal)
CPT/HCPCS: 80503; 89320

== ENCOUNTER 2021-07-21 14:42 | Outpatient (CLI) | payer OTHER, SELFPAY ==
--- NOTE | 2021-07-21 15:00 | USCV_ITS ---
Adonay Wallis Age: 50 Gender: M : 1970 Exam Date: 07/21/2021 15:14 Ordering Phys: Travis Valera M.D ([email or web address]) Technologist: Exam Location: [facility] [place] Indication: chest pain BP: 134 / 75 HR: 67 Rhythm: Sinus Technical Quality: Adequate MEASUREMENTS (Male / Female) Normal Values 2D ECHO LV Diastolic Diameter PLAX 4.7 cm 4.2 - 5.9 / 3.9 - 5.3 cm LV Systolic Diameter PLAX 2.3 cm IVS Diastolic Thickness 1.0 cm 0.6 - 1.0 / 0.6 - 0.9 cm IVS Systolic Thickness 1.6 cm LVPW Diastolic Thickness 1.2 cm 0.6 - 1.0 / 0.6 - 0.9 cm LVPW Systolic Thickness 1.7 cm LVOT Diameter 2.0 cm LV Ejection Fraction 2D Teich 82.1 % LV Ejection Fraction MOD 2C 78.3 % LV Ejection Fraction 2C AL 80.5 % LA Diameter 4.7 cm IVC Diameter 1.3 cm M-MODE Aortic Annulus Diameter 3.3 cm LA Ao Ratio MM 1.6 MV E Point Septal Separation 0.8 cm DOPPLER AV Peak Velocity 161.0 cm/s LVOT Peak Velocity 109.0 cm/s AV Area Cont Eq vti 2.5 cm squared AV Area Cont Eq pk 2.2 cm squared MV Area PHT 5.0 cm squared Mitral E to A Ratio 0.9 MV E' Velocity 52.0 cm/s Mitral E to MV E' Ratio 10.0 Mitral E to LV E' Lateral Ratio 8.1 Mitral E to LV E' Septal Ratio 13.1 TR Peak Velocity 243.0 cm/s TR Peak Gradient 23.6 mmHg TV Peak E Velocity 107.0 cm/s Right Atrial Pressure 3.0 mmHg Pulmonary Artery Systolic Pressu 26.6 mmHg PV Peak Velocity 123.0 cm/s FINDINGS Left Ventricle Normal left ventricular size. LV systolic function is normal with EF of 60-65%.No regional wall motion abnormalities. Diastolic function is normal. Right Ventricle The right ventricle is normal in size and function. Right Atrium The right atrium is normal in size. Left Atrium The left atrium is normal in size. Mitral Valve Structurally normal mitral valve without significant stenosis or prolapse. There is mild mitral regurgitation. Aortic Valve Structurally normal aortic valve without significant sclerosis or stenosis. There is no aortic regurgitation. Tricuspid Valve Structurally normal tricuspid valve without significant stenosis. Trace tricuspid regurgitation. Pulmonary artery systolic pressure is normal. Pulmonic Valve Grossly normal Pericardium Normal pericardium without effusion. Aorta Normal ascending aorta dimension. IVC CONCLUSIONS LV systolic function is normal with EF of 60-65% Diastolic function is normal Mild mitral regurgitation Trace tricuspid regurgitation No comparison studies are available Travis Valera MD (Electronically Signed) Final Date: 26 Jul 2021 12:26 S
== END 2021-07-21 14:43 | disposition home or self-care (01) ==
PROVIDERS: PCP Family Medicine; Visit Provider Internal Medicine
DX: R07.9 Chest pain, unspecified (principal); I34.0 Nonrheumatic mitral (valve) insufficiency
CPT/HCPCS: 93306

== ENCOUNTER 2021-10-17 08:31 | Outpatient (CLI) | payer OTHER, SELFPAY ==
--- NOTE | 2021-10-17 08:45 | MR_ITS ---
WS: [id number] MRI HEAD WITHOUT CONTRAST TECHNIQUE: Sagittal T1, T2 axial, T2 axial FLAIR, axial and coronal T1 images, axial susceptibility w eighted imaging, axial diffusion weighted images, and coronal T2 images were obtained. CLINICAL INFORMATION: R51.9 - Headache, unspecified COMPARISON: CT May 01, 2021 FINDINGS: No evidence restricted diffusion to suggest acute ischemia. Ventricular system and basal cisterns are patent. A few tiny foci of T2 hyperintensity in the RIGHT frontal white matter periventricular white matter of doubtful clinical significance but can be seen with migraine headaches. No significant par enchymal volume loss. Normal posterior fossa. Normal vascular flow voids at the skull base. No extra- axial fluid collections. No evidence of mass or mass effect. Mild mucosal thickening in the ethmoid a ir cells. Mastoid air cells are well aerated. No hemosiderin on the susceptibly weighted images. Normal optic chiasm and pituitary infundibulum. No rmal cavernous sinuses and Meckel's cave. Proximal 7th and 8th cranial nerves appear normal. MR/MR head wo con* [id number] IMPRESSION: 1. No evidence of restricted diffusion to suggest acute ischemia. 2. A few tiny foci of T2 hyperintensity in the RIGHT frontal and periventricul ar white matter of doubtful clinical significance but can be seen with migraine headaches. 3. Mild mucosal thickening in the ethmoid air cells. Mastoid air cells well ae rated. 4. No hemosiderin on susceptibly weighted images. 5. Temporal lobes and hippocampal formations are normal in appearance. 6. Normal optic chiasm and pituitary infundibulum. 7. No other remarkable findings.
== END 2021-10-17 08:32 | disposition home or self-care (01) ==
PROVIDERS: PCP Family Medicine; Visit Provider Specialist
DX: R51.9 Headache, unspecified (principal)
CPT/HCPCS: 70551

== ENCOUNTER 2021-11-27 11:12 | Outpatient (CLI) | payer OTHER, SELFPAY ==
--- NOTE | 2021-11-27 11:15 | XR_ITS ---
WS: [id number] KUB, AP view, 11/27/2021 Clinical Data: Gross hematuria, L flank pain Comparison: None. Findings: No abnormal intraabdominal masses are seen. There is no dilatated small bowel or evidence of obstruct ion. There is a small calcification inferior to the left L3 transverse process which could be in the left ureter. No true pelvic calcifications are seen. XR/XR KUB [id number] Impression: Possible left ureteral calcification.
--- NOTE | 2021-11-27 12:30 | CT_ITS ---
WS: [id number] CT ABDOMEN PELVIS TECHNIQUE: Noncontrast CT of the abdomen and pelvis with coronal and sagittal reformatted images. CLINICAL INFORMATION: Gross hematuria COMPARISON: None. DLP: 1222.[address] scans at [facility] use at least one of these dose optimization techniques: automated e xposure control; mA and/or kV adjustment per patient size (includes targeted exams where dose is matc hed to clinical indication); or iterative reconstruction. FINDINGS: Obstructing LEFT ureteral calculus proximally measuring 5 mm. Distal LEFT ureter is patent. Slight di latation of the LEFT renal pelvis. Minimal perinephric inflammatory stranding and edema. No obstructi ng RIGHT renal or ureteral calculi. No hydronephrosis in RIGHT kidney. Lung bases are well aerated. Noncontrast liver is normal. Gallbladder is contracted. Tiny amount of g allbladder sludge or microcalculi. This can be further evaluated with ultrasound. Noncontrast spleen appears normal. Postoperative changes the GE junction. Mild fatty atrophy of the pancreas. Normal brenden iber abdominal aorta. Normal sigmoid colon. No evidence of small or large bowel obstruction. Normal appendix in the RIGHT l ower quadrant. No free fluid in the pelvis. Normal caliber abdominal aorta. Tiny fat-containing umbil ical hernia. No lymphadenopathy in the abdomen or pelvis. No inguinal lymphadenopathy. Tiny fat-conta ining LEFT inguinal hernia. Hypertrophic changes lower thoracic spine. CT/CT abdomen pelvis wo con [id number] IMPRESSION: Obstructing LEFT ureteral calculus proximally measuring 5 mm. Distal LEFT urete r is patent. Slight dilatation of the LEFT renal pelvis. Minimal perinephric in flammatory stranding and edema about the LEFT kidney.
== END 2021-11-27 11:13 | disposition home or self-care (01) ==
PROVIDERS: PCP Family Medicine; Visit Provider Family Medicine
DX: R31.0 Gross hematuria (principal); R10.9 Unspecified abdominal pain; N20.1 Calculus of ureter; R39.9 Unspecified symptoms and signs involving the genitourinary system
CPT/HCPCS: 74018; 74176; 81000

== ENCOUNTER → 2022-05-29 09:02 | Outpatient (BNVA) | payer OTHER, SELFPAY | PROVIDERS: PCP Family Medicine; Visit Provider Family Medicine | DX: Z00.00 Encounter for general adult medical examination without abnormal findings (principal); R73.01 Impaired fasting glucose; R94.39 Abnormal result of other cardiovascular function study; D17.9 Benign lipomatous neoplasm, unspecified; Z51.81 Encounter for therapeutic drug level monitoring; Z13.220 Encounter for screening for lipoid disorders; Z12.11 Encounter for screening for malignant neoplasm of colon; E66.9 Obesity, unspecified | CPT/HCPCS: 80053; 80061; 83036; 85025 ==

== ENCOUNTER → 2022-07-10 11:41 | Outpatient (BNVA) | payer OTHER, SELFPAY | PROVIDERS: PCP Family Medicine; Visit Provider Family Medicine | DX: Z00.00 Encounter for general adult medical examination without abnormal findings (principal); Z51.81 Encounter for therapeutic drug level monitoring | CPT/HCPCS: 85025 ==

== ENCOUNTER → 2023-03-16 16:46 | Outpatient (BNVA) | payer OTHER, SELFPAY | PROVIDERS: PCP Family Medicine; Visit Provider Family Medicine | DX: R73.01 Impaired fasting glucose (principal); L03.031 Cellulitis of right toe | CPT/HCPCS: 82962 ==

== ENCOUNTER 2023-04-12 09:02 | Outpatient (CLI) | payer OTHER, SELFPAY ==
--- NOTE | 2023-04-12 09:05 | XR_ITS ---
WS: [id number] XR foot RT 2V [id number] REASON FOR EXAM: Pain in 5th digit FINDINGS: Deformity of the proximal phalanx of the fifth toe which appears to represent an old healed fracture. No periosteal reaction or bone erosion. Mild subluxation of the DIP joints of the second through the fifth toes. Mild hallux valgus deformity at the first MP joint. Joint spaces of the midfoot are intact and relatively well preserved. No focal bone abnormality in th e midfoot. Subtalar joint is intact and relatively well preserved. Moderate calcaneal Achilles and plantar enthesophytes. IMPRESSION: Presumed old healed fracture in the fifth toe as above. Otherwise, no acute abnormality.
== END 2023-04-12 09:03 | disposition home or self-care (01) ==
LOC: RAD 09:03
PROVIDERS: PCP Family Medicine; Visit Provider Family Medicine
DX: M79.674 Pain in right toe(s) (principal); Z51.81 Encounter for therapeutic drug level monitoring; E11.9 Type 2 diabetes mellitus without complications; Z13.220 Encounter for screening for lipoid disorders; Z12.5 Encounter for screening for malignant neoplasm of prostate
CPT/HCPCS: 73620; 80053; 80061; 83036; 84153; 85025

== ENCOUNTER 2023-10-27 07:25 | Outpatient (CLI) | payer OTHER, SELFPAY ==
--- NOTE | 2023-10-27 07:32 | XRR_ITS ---
PROCEDURE INFORMATION: Exam: XR Right Shoulder Exam date and time: 10/27/2023 7:40 AM Age: 53 years old Clinical indication: Shoulder; Right; Patient HX: Aching pain for 2 years no known injury; Additional info: Right shoulder pain TECHNIQUE: Imaging protocol: Radiologic exam of the right shoulder. Views: 2 or more views. COMPARISON: MR shoulder RT wo/w con [id number] 05/24/2017 1:08 PM FINDINGS: Bones/joints: Prior surgery with a suture anchor in the humeral head. Mild acromioclavicular and glenohumeral spurring. No fracture or dislocation. Soft tissues: Normal. Other findings: . XR/XR shoulder RT min 2V* [id number] IMPRESSION: Degenerative changes.
== END 2023-10-27 07:26 | disposition home or self-care (01) ==
PROVIDERS: PCP Family Medicine; Visit Provider Family Medicine
DX: M19.011 Primary osteoarthritis, right shoulder (principal); M25.511 Pain in right shoulder
CPT/HCPCS: 73030

== ENCOUNTER → 2024-04-07 09:18 | Outpatient (BNVA) | payer OTHER, SELFPAY | PROVIDERS: PCP Family Medicine; Visit Provider Family Medicine | DX: E55.9 Vitamin D deficiency, unspecified (principal); Z00.00 Encounter for general adult medical examination without abnormal findings; Z12.5 Encounter for screening for malignant neoplasm of prostate; Z51.81 Encounter for therapeutic drug level monitoring; Z13.220 Encounter for screening for lipoid disorders | CPT/HCPCS: 80053; 80061; 82306; 84153; 85025 ==

== ENCOUNTER → 2024-05-10 14:31 | Outpatient (BNVA) | payer OTHER, SELFPAY | PROVIDERS: PCP Family Medicine; Visit Provider Student in an Organized Health Care Education/Training Program | DX: S46.001A Unspecified injury of muscle(s) and tendon(s) of the rotator cuff of right shoulder, initial encounter (principal); X58.XXXA Exposure to other specified factors, initial encounter; M19.011 Primary osteoarthritis, right shoulder; M75.41 Impingement syndrome of right shoulder; Z98.890 Other specified postprocedural states | CPT/HCPCS: 73030 ==

== ENCOUNTER 2024-05-26 07:06 | Outpatient (CLI) | payer OTHER, SELFPAY ==
--- NOTE | 2024-05-26 07:15 | MRR_ITS ---
PROCEDURE INFORMATION: Exam: MR Right Upper Extremity Joint Without Contrast; Shoulder Exam date and time: 05/26/2024 7:24 AM Age: 53 years old Clinical indication: Pain; Prior surgery; Surgery date: 6+ months; Surgery type: Right shoulder 6 years ago; Additional info: Right shoulder pain TECHNIQUE: Imaging protocol: Magnetic resonance imaging of the right upper extremity without contrast. Exam focused on the shoulder. COMPARISON: CR XR shoulder RT min 2V* [id number] 05/10/2024 2:35 PM FINDINGS: ROTATOR CUFF: There is evidence for prior rotator cuff repair with a surgical anchor in the humerus and associated metallic artifact limiting optimal evaluation. There is mild to moderate thickening and T2 hyperintensity involving the supraspinatus tendon from the critical zone to the musculotendinous junction. No focal tear is seen. The infraspinatus, subscapularis, and teres minor muscles and tendons appear intact. No significant muscular atrophy. BICEPS TENDON: Normal in caliber and normally located within the bicipital groove. ACROMION AND OSSEOUS OUTLET: There is a type 2 acromion with moderate lateral downsloping. There are moderate to marked degenerative and hypertrophic changes involving the acromioclavicular joint with degenerative spurring along the undersurface. GLENOID LABRUM: Grossly intact on this noncontrast study. OSSEOUS STRUCTURES: Surgical anchor seen in the humeral head with associated metallic artifact. There is mild narrowing of the glenohumeral joint with thinning of the articular cartilage, mild subchondral sclerosis, and tiny spurs. No evidence for acute fracture or suspicious osseous lesion. SOFT TISSUES: There is very mild T2 hyperintensity within the subacromial/subdeltoid bursa. MR/MR shoulder RT wo con* [id number] IMPRESSION: 1. Evidence for prior rotator cuff repair with a surgical anchor in the humeral head and associated metallic artifact limiting optimal evaluation. 2. Wauc-su-irvoucfy supraspinatus tendinosis. No discrete tear seen. 3. Type 2 acromion with moderate lateral downsloping. This predisposes to clinical impingement syndrome. 4. 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 5. Mild osteoarthritis involving the glenohumeral joint. 6. Very mild subacromial/subdeltoid bursitis.
== END 2024-05-26 07:07 | disposition home or self-care (01) ==
LOC: RAD 07:09
PROVIDERS: PCP Family Medicine; Visit Provider Student in an Organized Health Care Education/Training Program
DX: M19.011 Primary osteoarthritis, right shoulder (principal); Z98.890 Other specified postprocedural states; M67.813 Other specified disorders of tendon, right shoulder; R93.6 Abnormal findings on diagnostic imaging of limbs; M75.51 Bursitis of right shoulder; M77.8 Other enthesopathies, not elsewhere classified
CPT/HCPCS: 73221

== ENCOUNTER → 2024-07-06 07:49 | Day surgery (SDC) | payer OTHER, SELFPAY ==
[2024-07-06 07:33] VITALS: BMI 35.5
[2024-07-06 08:11] VITALS: BP 111/75; PULSE 70; RESP 16; TEMP 36.4; O2SAT 97
[2024-07-06] MEDS: acetaminophen 1,000 MG/100 ML PIGGYBACK 400 MG IV (08:36)
[2024-07-06] MEDS: sodium chloride 0.9% 1,000 ML 15 ML IV (08:40)
[2024-07-06] MEDS: ketorolac 30 mg/mL INJ IVP (08:43)
[2024-07-06] MEDS: scopolamine 1 mg PATCH 1 PATCH TRANSDERMA (08:49)
--- NOTE | 2024-07-06 10:04 | P.ANESASSM_ITS ---
Pre-Anesthetic Assessment Height/Weight: Height 1.8 m Weight 115.666 kg Temp Pulse Resp BP Pulse Ox O2 Del Method 97.6 F 70 16 111/75 97 Room Air 07/06/24 08:11 07/06/24 08:11 07/06/24 08:11 07/06/24 08:11 07/06/24 08:11 07/06/24 08:16 Operation Date: 07/06/24 09:30 Proposed Procedures p RIGHT shoulder diagnostic and surgical arthroscopy(Right) - Enrique Anna, DO s Subacromial Decompression(Right) - Enrique Anna, DO s Acromioclavicular Joint Resection(Right) - Enrique [place], DO s possible rotator cuff debridement versus repair(Right) - Enrique [place], DO s possible biceps tenodesis(Right) - Enrique [place], DO Familial anesthetic complications: None Last intake: Intake Last Liquid Date 07/05/24 Last Liquid Time 23:55 Last Solid Date 07/05/24 Last Solid Time 23:00 Social Tobacco (chewing tobacco this AM at 0400) and No alcohol Exam alert, oriented x 3, clear to auscultation bilaterally and regular rate & rhythm Airway Mallampati: Class III Dentition: full CV/HEM Coronary Artery Disease Metabolic Morbid Obesity Anesthetic Plan ASA status: 3 Anesthesia: General and Regional (specify below) Risk of > 500 ml blood loss (7ml/kg in children): No Other Pertinent Information Review of most recent PCP note (Dr. Merino) states patient presented to the office for chest pain in December 2023. Was thought to be potentially msk in nature, but was instructed to follow up with cardiology in April or sooner if symptoms got worse. Unfortunately patient was unable to make it to his appoint in April and hasn't seen cardiology in over 3 years since his cath in 2021. However, today patient is stating to me he has not had chest pains since 2021, so i discussed his case with Dr. merino, who also felt it was reasonable to get cardiac clearance for optimal safety. Also reached out to Dr. Valera, his electronics engineer in 2021 and the electronics engineer on-call, to see if he felt further cardiac work up might be required. He also agreed it was best for the patient for him to see him in office since he has had no follow up since 2021. Decision made to re-schedule patient surgery after appropriate cardiac clearance. This decision was discussed with patient, spouse, Dr. Castillo, and me at bedside. All questions answered. Patient ultimately in agreeance with plan. Medications/Allergies Home Medications ?Medication ?Instructions ?Recorded ?Confirmed ?Last Taken ?Type No Known Home Medications 06/13/24/ Unknown History Allergies Allergy/AdvReac Type Severity Reaction Status Date / Time No Known Allergies Allergy Verified 07/05/24 14:11 Current Medications Generic Name Dose Route Start Last Admin Trade Name Freq PRN Reason Stop Dose Admin Sodium Chloride 1,000 mls @ 15 mls/hr 07/05/24 11:26 07/06/24 08:40 Sodium Chloride 0.9% IV 07/06/24 11:25 15 mls/hr .Q24H PRN Administration COLONOSCOPY FLUIDS PFSH Anesthesia Medical History Occipital neuralgia No pertinent family history No pertinent past medical history Surgical History H/O gastric sleeve H/O shoulder surgery rt shoulder H/O left knee surgery meniscus H/O hand surgery Family History Mother Diabetes Denies family history of Anesthesia complication Bleeding disorder Social History Smoking and tobacco/nicotine status: former use of tobacco/nicotine Alcohol intake: never Substance/Drug Use: never Caregiver/support person: Yes Lives independently: Yes Marital status: Current occupation: [employer] Anesthesia Cardiac Studies: Echocardiogram 07/21/21 Sestamibi Stress Test (Cardiology) 05/02
--- NOTE | 2024-07-06 10:08 | SUR.PREOP ---
09:20 DOCTOR Hernandez INTO EVALUATE PT. 09:40 PLAN OF CARE AND THE NEED FOR CARDIAC EVALUATION DISCUSSED WITH PT AND FAMILY. 09:50 DOCTOR ROGERS AND DOCTOR Hernandez INTO RE-EVALUATE PT AND TO EXPLAIN THE NEED FOR FURTHER CARDIAC CLEARANCE FOR SURGERY. PT INSTRUCTED TO FOLLOW UP WITH NET TRAINER AND DOCTOR ROGERS DISCUSSED. PT VERBALIZED UNDERSTANDING. IV DC'ED. PT LEFT IN STABLE CONDITION WITH FAMILY MEMBER.
== END | disposition home or self-care (01) ==
PROVIDERS: PCP Family Medicine; Visit Provider Student in an Organized Health Care Education/Training Program
PROC: (CPT 29805; principal; 2024-07-06 09:30)
PROC: (CPT 29826; 2024-07-06 09:30)
PROC: 0RSG0ZZ Reposition Right Acromioclavicular Joint, Open Approach (ICD-10-PCS; 2024-07-06 09:30)
PROC: (CPT 29827; 2024-07-06 09:30)
PROC: (CPT 23430; 2024-07-06 09:30)
DX: Z53.8 Procedure and treatment not carried out for other reasons (principal); M75.41 Impingement syndrome of right shoulder; M19.011 Primary osteoarthritis, right shoulder; M75.21 Bicipital tendinitis, right shoulder; Z98.84 Bariatric surgery status; I25.10 Atherosclerotic heart disease of native coronary artery without angina pectoris; E66.01 Morbid (severe) obesity due to excess calories; Z68.35 Body mass index [BMI] 35.0-35.9, adult; Z87.891 Personal history of nicotine dependence
CPT/HCPCS: J0131; J1100; J1885; J2250; J2405; J2704; J2795; J3010; J3490; J7030; J9999

== ENCOUNTER → 2024-07-12 15:53 | Outpatient (BNVA) | payer OTHER, SELFPAY | PROVIDERS: PCP Family Medicine; Visit Provider Internal Medicine | DX: R07.9 Chest pain, unspecified (principal) | CPT/HCPCS: 93005 ==

== ENCOUNTER 2024-07-20 06:28 | Day surgery (SDC) | payer OTHER, SELFPAY ==
[2024-07-20] VITALS (11 sets, daily range): BP systolic 108–132; BP diastolic 70–90; PULSE 72–94; RESP 16–27; TEMP 36.1–36.2; O2SAT 90–98; BMI 35.5
[2024-07-20] MEDS: sodium chloride 0.9% 1,000 ML 30 ML IV (07:19)
--- NOTE | 2024-07-20 07:19 | W.PM.OPSFHP ---
Same Day Surgery H&P Indication for Procedure/HPI DATE OF PROCEDURE: July 20, 2024 CHIEF COMPLAINT/INDICATIONFOR SURGICAL PROCEDURE: Right shoulder AC joint arthritis, subacromial impingement biceps tendinitis PREOP DIAGNOSIS: Right shoulder AC joint arthritis, subacromial impingement, biceps tendinit PLANNED PROCEDURE: Operation Date: 07/20/24 07:55 Proposed Procedures p Shoulder Arthroscopy and diagnostic(Right) - Enrique [place], DO s Subacromial Decompression(Right) - Enrique Anna, DO s AC Joint Resection(Right) - Enrique Anna, DO s Debridement Upper Extremity rotator cuff vs repair(Right) - Enrique [place], DO s Bicep Tenodesis(Right) - Enrique [place], DO Medications/Allergies* Home Medications ?Medication ?Instructions ?Recorded ?Confirmed ?Type tirzepatide (weight loss) 2.5 2.5 mg SUBCUT .WEEKLY 07/12/24 07/13/24 History mg/0.5 mL subcutaneous solution gabapentin 300 mg capsule 300 mg PO DAILY PRN Pain 07/13/24 07/13/24 History Allergies/Adverse Reactions Allergy/AdvReac Type Severity Reaction Status Date / Time No Known Allergies Allergy Verified 07/13/24 13:25 Pertinent History/Comorbid Conditions* Medical History (Updated 07/13/24 @ 12:31 by Travis Valera M.D) Occipital neuralgia No pertinent family history No pertinent past medical history Surgical History (Updated 12/20/23 @ 17:01 by Wilfredo Keita MD) H/O gastric sleeve H/O shoulder surgery rt shoulder H/O left knee surgery meniscus H/O hand surgery Family History (Updated 01/15/21 @ 08:46 by Mary Ambrose RN) Diabetes Mother Denies family history of Anesthesia complication Bleeding disorder Social History Smoking and tobacco/nicotine status: former use of tobacco/nicotine Alcohol intake: never Substance/Drug Use: never Caregiver/support person: Yes Lives independently: Yes Marital status: Current occupation: [employer] Pertinent Exam Findings alert, oriented x 3, operative site marked and procedure specific exam findings Please refer to detailed orthopedic examination on 06/13/24: Right Shoulder Exam: No posterior tenderness TTP over AC joint, anterior and lateral shoulder Mild lateral shoulder TTP ROM:Pain with range of motion Internal Rotation 5 out of 5 with elbows at the side External Rotation 5 out of 5 with elbows at the side Spurlings: Negative O'Briens: Positive Jobes: Positive [place] Impingement: Positive Speeds Test: Positive Crossover/Neers test: Positive Recommendations Risks and benefits of procedure reviewed and Patient/family agree to proceed Surgery/Procedure today Other Plans: Plan to proceed to the OR today for right shoulder diagnostic and surgical arthroscopy with subacromial decompression, AC joint resection, possible rotator cuff debridement versus repair, possible biceps tenotomy versus tenodesis. He understands the ins and outs procedure risk benefits complication alternatives surgery and through shared decision-making was proceed with surgical invention. All question answered this time. He was canceled previously due to patient having the need for cardiac clearance he is already seeing the automobile detailer in and clear to proceed with surgical intervention been seen evaluate by anesthesia today and cleared to proceed with surgical intervention. Patient once again understands the risk benefits complication alternatives surgery and through shared decision make elects proceed with surgical intervention all questions answered at this time. Coding Level of Care Code Acute Code for Chg Fwd
[2024-07-20] MEDS: acetaminophen 1,000 MG/100 ML PIGGYBACK 400 MG IV (07:20)
[2024-07-20] MEDS: ketorolac 30 mg/mL INJ IVP (07:21)
[2024-07-20] MEDS: scopolamine 1 mg PATCH 1 PATCH TRANSDERMA (07:22)
[2024-07-20] MEDS: ceFAZolin 2,000 MG in sodium chloride 0.9% (plus) 50 ML 100 MG IV (08:16)
--- NOTE | 2024-07-20 08:34 | ANES.PREANE2 ---
Pre-Anesthetic Assessment Height/Weight: Height 1.8 m Weight 115.666 kg Temp Pulse Resp BP Pulse Ox O2 Del Method 97.1 F L 72 18 122/82 98 Room Air 07/20/24 06:43 07/20/24 06:43 07/20/24 06:43 07/20/24 07:22 07/20/24 06:43 07/20/24 06:43 Preop Diagnosis: Right shoulder AC joint arthritis, subacromial impingement, biceps tendinit Operation Date: 07/20/24 07:55 Proposed Procedures p Shoulder Arthroscopy and diagnostic(Right) - Enrique [place], DO s Subacromial Decompression(Right) - Enrique [place], DO s AC Joint Resection(Right) - Enrique [place], DO s Debridement Upper Extremity rotator cuff vs repair(Right) - Enrique [place], DO s Bicep Tenodesis(Right) - Enrique [place], DO Familial anesthetic complications: none Was Beta Eligio taken within 24 hours: N/A Was Clonidine taken within 24 hours: N/A Last intake: Intake Last Liquid Date 07/19/24 Last Liquid Time 23:45 Last Solid Date 07/19/24 Last Solid Time 22:30 Social Tobacco and No alcohol Exam alert, oriented x 3, clear to auscultation bilaterally and regular rate & rhythm CV/HEM Hypertension Anesthetic Plan ASA status: 2 Anesthesia: General and Regional (specify below) Other: Discussed tirzepatide last use Wednesday; Patient states he's been on the medication for 8 months, dose has been stable, denies any GI side effects from therapy such as nausea, vomiting, or constipation; informed patient of risk of aspiration with GLP-1 usage and gave options to proceed with RSI technique vs re-scheduling after 1-2 week hold. Patient and family elected to proceed with RSI technique. Risk of > 500 ml blood loss (7ml/kg in children): No Medications/Allergies Home Medications ?Medication ?Instructions ?Recorded ?Confirmed ?Last Taken ?Type tirzepatide (weight loss) 2.5 2.5 mg SUBCUT .WEEKLY 07/12/24 07/13/24 07/17/24 History mg/0.5 mL subcutaneous solution gabapentin 300 mg capsule 300 mg PO DAILY PRN Pain 07/13/24 07/13/24 1 Week Ago History ~07/06/24 Allergies Allergy/AdvReac Type Severity Reaction Status Date / Time No Known Allergies Allergy Verified 07/13/24 13:25 Current Medications Generic Name Dose Route Start Last Admin Trade Name Kimberley PRN Reason Stop Dose Admin Sodium Chloride 1,000 mls @ 30 mls/hr 07/20/24 06:45 07/20/24 07:19 Sodium Chloride 0.9% IV 07/21/24 06:44 30 mls/hr .Q24H ZEHRA Administration PFSH Anesthesia Medical History Occipital neuralgia No pertinent family history No pertinent past medical history Surgical History H/O gastric sleeve H/O shoulder surgery rt shoulder H/O left knee surgery meniscus H/O hand surgery Family History Mother Diabetes Denies family history of Anesthesia complication Bleeding disorder Social History Smoking and tobacco/nicotine status: former use of tobacco/nicotine Alcohol intake: never Substance/Drug Use: never Caregiver/support person: Yes Lives independently: Yes Marital status: Current occupation: [employer] Anesthesia Cardiac Studies: Echocardiogram 07/21/21 Sestamibi Stress Test (Cardiology) 05/02/21 Anesthesia Procedures Nerve Block Nerve Block 1: Main Anesthesia: general anesthesia Time Out Performed: Yes Consent: requested by attending/covering physician, from patient, from other, risks and benefits reviewed and patient agrees to proceed Nerve block location: interscalene (R) Anesthesia monitors applied: pulse oximetry, EKG, BP cuff and oxygen Nerve block position: semi sitting Anesthetic Used: ropivicaine 0.5% (20 ml) and with decadron (4 mg) Ultrasound used to: recognize landmarks, visualize and ID brachial plexus, in supraclavicular region and visualize and ID interscalene groove Interscalene/Femoral BLK: 2 stimuplex 22 g needle used for position and inplane approach, visualize local anesthetic spread and no vascular puncture identified Injection: neg aspiration of heme Patient Tolerated Procedure: well Complications: none
[2024-07-20] MEDS: EPINEPHrine 1 mg/mL INJ XX (09:24)
--- NOTE | 2024-07-20 10:10 | P.BOP_ITS ---
Date of Procedure: 07/20/2024 Surgeon: Enrique Castillo DO Women'S Garment Fitter(s): Wilfredo Castillo PA-C Procedure(s) performed: Right shoulder diagnostic and surgical arthroscopy with biceps tenodesis Right shoulder diagnostic and surgical arthroscopy with removal of loose bodies (greater than 1 cm totaling) Right shoulder diagnostic and surgical arthroscopy with glenohumeral joint chondroplasty Right shoulder diagnostic and surgical arthroscopy with subacromial decompression (bursectomy/acromioplasty) Right shoulder diagnostic and surgical arthroscopy with AC joint resection (distal clavicle excision) Right shoulder diagnostic and surgical arthroscopy with labral debridement Findings of the procedure(s): Patient found to have intact rotator cuff patient found to have superior labral tear with unstable biceps anchor and tendinitis underwent bicep tenodesis while issues or complications also had 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 Then subsequently underwent AC joint resection and subacromial decompression and labral debridement tolerated procedure well without issues or complications taken to recovery in stable condition. Estimated blood loss: 10 mL Specimen(s) removed: Multiple removal loose bodies not sent for specimen Post-operative diagnosis: Right shoulder biceps tendinitis/superior labral tear, loose bodies, glenohumeral joint chondromalacia, subacromial impingement, AC joint arthritis, circumferential labral tearing
--- NOTE | 2024-07-20 10:12 | P.OP_ITS ---
Operative Report Date of procedure: July 20, 2024 Surgeon: Enrique Castillo DO Operating Room Registered Nurse: Wilfredo Castillo PA-C: PA was necessary for assistance in this case with shoulder positioning to execute the procedure, assistance with instrumentation, as well as implant fixation when necessary, assist with wound closure and dressing application. Procedure: Preoperative diagnosis: Right shoulder AC joint arthritis, subacromial impingement biceps tendinitis Post-op diagnosis: Right shoulder biceps tendinitis/superior labral tear, loose bodies, glenohumeral joint chondromalacia, subacromial impingement, AC joint arthritis, circumferential labral tearing Procedure done: Right shoulder diagnostic and surgical arthroscopy with biceps tenodesis Right shoulder diagnostic and surgical arthroscopy with removal of loose bodies (greater than 1 cm totaling) Right shoulder diagnostic and surgical arthroscopy with glenohumeral joint chondroplasty Right shoulder diagnostic and surgical arthroscopy with subacromial decompression (bursectomy/acromioplasty) Right shoulder diagnostic and surgical arthroscopy with AC joint resection (distal clavicle excision) Right shoulder diagnostic and surgical arthroscopy with labral debridement Surgeon: Enrique Castillo DO Estimated blood loss: 10mL IV fluids: 1400mL Implants: Arthrex 4.75 biceps tenodesis loop and tack kit Complications: None Condition: stable Disposition: same day Brief History: Patient been seen and worked up in the outpatient setting for?right?shoulder?pain.? Pt had an MRI which showed findings below.? Patient's failed conservative treatment and has weakness.? We talked about treatment options far as nonoperative and operative intervention..? We talked about risk benefits complication alternatives surgical nonsurgical treatment options.? Understanding risk of surgery he agrees to proceed with surgical intervention for right shoulder diagnostic and surgical arthroscopy with subacromial decompression, AC joint resection, possible rotator cuff debridement versus repair, possible biceps tenotomy versus tenodesis.? All questions have been answered at this time.? Patient elects proceed with surgery and consent obtained in office. MR/MR shoulder RT wo con* [id number] IMPRESSION: 1. Evidence for prior rotator cuff repair with a surgical anchor in the humeral head and associated metallic artifact limiting optimal evaluation. 2. [id number] supraspinatus tendinosis. No discrete tear seen. 3. Type 2 acromion with moderate lateral downsloping. This predisposes to clinical impingement syndrome. 4. 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 5. Mild osteoarthritis involving the glenohumeral joint. 6. Very mild subacromial/subdeltoid bursitis. Procedure: Patient seen evaluated in the preoperative holding area.? Consent reviewed and signed with patient.? Once again reviewed patient's MRI results as well as? planned surgical intervention.? Correct extremity marked.? Patient seen evaluated by anesthesia department received regional anesthesia.? Once ready for surgery was taken back to the operative suite.? Patient then subsequently underwent anesthesia per the anesthesia department was transported onto the OR table.? Patient was then placed into a lateral decubitus position with a beanbag and was appropriately secured to the bed.? All bony prominences well-padded.? Patient then had the?right?upper extremity was then prepped and draped in standard orthopedic fashion.? Patient received appropriate preoperative antibiotics.? Final timeout performed. The?right?upper extremity was then held in hanging from traction utilizing sterile technique.? Next started with standard diagnostic and surgical arthroscopy with posterior portal position introduced arthroscope into the glenohumeral joint.? Visualized the glenohumeral joint I then introduced a spinal needle within the rotator cuff interval to confirm appropriate anterior portal placement.? Once this was confirmed I then made my small incision and then introduced my arthroscopic shaver into the glenohumeral joint. After flushing the joint fluid, was clearly evident patient had biceps tendon tearing/tendinitis as well as Superior labral tear. Patient had appreciable unstable biceps anchor most pronounced in the superior labrum. Given there appears to be healthy intra-articular tendon plan was for an intra-articular biceps tenodesis at the superior portion as it enters the intertubercular groove. Thermal wand introduced into the rotator interval. I then release of the rotator interval to have appropriate visualization and the ability to perform biceps tenodesis. At this point I established a purple passport cannula which was introduced. Next I performed an Arthrex loop and tack biceps tenodesis. Passer was then made around the tendon luggage tag stitch around and then thru the tendon , I then utilized a thermal wand to release the biceps tend on at the anchor to perform with tenotomy. I then loaded with suture onto an Arthrex 4.75 swivel lock suture anchor. A punch was then placed in appropriate position at the entry point into the intertubercular groove just superior to the subscapularis tendon. Punch was then introduced to the appropriate depth. The suture loaded on the swivel lock was then advanced held under appropriate tension and shoulder lock anchor was then advanced and had excellent fixation. Excess suture was then cut biceps tenodesis was complete. I then utilized a thermal wand to seal the edges of the superior labrum. Next I evaluated the subscapularis tendon which was intact and no evidence of tear. ?Next there was significant labral tearing at biceps anchor and circumferential.? ? I then subsequently utilized a a arthroscopic shaver and thermal wand to perform a labral debridement.? This point time I then visualized the glenohumeral joint.? The glenohumeral joint was found to have grade 3? chondromalacia throughout. At this point in time identified 3 loose bodies that totaled greater than 1 cm and grade these each individually with a tissue grasper and removed these from the joint and then introduced arthroscopic shaver until the joint was entirely clear and no evidence of loose bodies appreciated after this. I did utilize a arthroscopic shaver and thermal wand to perform a glenohumeral joint chondroplasty as there is multiple areas of unstable articular cartilage and taken these to stable articular cartilage. Axillary pouch was free of loose bodies from viewing the posterior portal.? Next a visualized the rotator cuff superiorly and there was found to have patient's previous suture in place and there was a complete seal of the rotator cuff no evidence of tearing undersurface and patient had a negative escape bubble sign as a result rotator cuff left intact intra-articularly. This completed my work within the glenohumeral joint all fluid was suctioned free of the joint.? ?Next I reintroduced the arthroscope posteriorly.? And went to the subacromial space.? I established my lateral working portal at the site of which my spinal needle was marking of the rotator cuff tear.? Thermal wand was then introduced laterally and then I subsequently performed extensive bursectomy of the subacromial space.? Patient had a large anterior bone spur.? At this point time I proceeded with my AC joint resection thermal wand was used and track to the anterior edge of the acromion and then tracked all the way to the AC joint.? Once identified the AC joint this was very arthritic in nature.? Thermal wand was placed anteriorly to establish appropriate plane for AC joint resection.? Once appropriate margins and anterior inferior and anterior capsule was released I then introduced arthroscopic shaver and a bur and performed AC joint resection of both the acromion to cope plane at the AC joint and a distal clavicle resection was then performed totaling 1 cm in size and was confirmed.? This completed my AC joint resection and I then introduced the arthroscopic shaver laterally while continuing to view posteriorly.? I then performed an acromioplasty to complete my subacromial decompression prior to Further evaluation of the rotator cuff. At this point in time after all the bursa was excised by direct visualization of the superior aspect of the rotator cuff from the bursal space there is no evidence of bursal sided tearing as result the rotator cuff was found to be intact I did take the shoulder through extensive range of motion and this moved as a unit with no evidence of tear. I then introduced the arthroscope laterally once again confirming no evidence of rotator cuff tear. ?Next I then introduced the arthroscopic shaver posteriorly to complete my subacromial decompression appropriate complaining all the way up to the lateral edge of the acromion.? This completed the surgery.? All fluid was suctioned from the?shoulder.? All instruments were removed.? The lateral incision was then closed with nylon stitches.? As well as the portal sites closed with portal nylon stitches.? Xeroform 4 x 4's ABD and tape was then applied to the?right?shoulder?and was placed into a?shoulder?abduction pillow sling for bicep tenodesis.? Patient was then awakened from anesthesia and then taken back to PACU in stable condition.? Patient tolerated procedure without any issues. Disposition: Patient taken back in stable condition recovering well.? Dressings on in place clean dry and intact.? Will be nonweightbearing to the?right?upper extremity.? Follow bicep tenodesis protocol.? Patient to follow-up with me in the office in 2 weeks.? Patient will receive appropriate discharge instruction as well as pain medication postoperatively.? All questions answered.? We will contact the office for any questions or concerns.
--- NOTE | 2024-07-20 10:27 | PM.PACU ---
PACU note Narrative: Patient is a 53-year-old male that just underwent a right shoulder arthroscopy. Patient transferred to PACU in stable condition. Pain is well controlled. shoulder Dressing on , dry and in place. Patient's operative arm is in a shoulder immobilizer. Patient is awake and alert and able to respond to my questions accordingly. Patient's fingers are warm with good perfusion. Normal cap refill under 2 seconds. Patient has sensation to fingers and hand intact. Exam: awake Disposition: discharged
[2024-07-20] MEDS: HYDROcodone-acetaminophen 7.5-325 mg Tablet 1 TAB PO (11:21)
--- NOTE | 2024-07-20 11:50 | ANE.PACU2 ---
Inpatient post-anesthesia follow up: Airway intact: Yes Vital signs: Temperature 97 F Pulse Rate 77 Respiratory Rate 18 Blood Pressure 127/82 Pulse Oximetry 92 Oxygen Delivery Me thod Room Air Oxygen Flow Rate 2 Fraction of Inspir ed Oxygen Hydration adequate: Yes Nausea and vomiting: No Pain level: 1 Mental status: Baseline
== END 2024-07-20 11:50 | disposition home or self-care (01) ==
PROVIDERS: PCP Family Medicine; Visit Provider Student in an Organized Health Care Education/Training Program
PROC: (CPT 29805; principal; 2024-07-20 07:55)
PROC: (CPT 29826; 2024-07-20 07:55)
PROC: 0RSG0ZZ Reposition Right Acromioclavicular Joint, Open Approach (ICD-10-PCS; CPT 29828; 2024-07-20 07:55)
PROC: (CPT 23430; 2024-07-20 07:55)
PROC: (CPT 29828; 2024-07-20 07:55)
PROC: (CPT 29828; 2024-07-20 07:55)
PROC: (CPT 29828; 2024-07-20 07:55)
DX: M75.21 Bicipital tendinitis, right shoulder (principal); M75.41 Impingement syndrome of right shoulder; M24.011 Loose body in right shoulder; M19.011 Primary osteoarthritis, right shoulder; M94.211 Chondromalacia, right shoulder; M77.8 Other enthesopathies, not elsewhere classified; S43.431A Superior glenoid labrum lesion of right shoulder, initial encounter; X58.XXXA Exposure to other specified factors, initial encounter; Z79.899 Other long term (current) drug therapy; Z79.85 Long-term (current) use of injectable non-insulin antidiabetic drugs; Z87.891 Personal history of nicotine dependence
CPT/HCPCS: 29828; 29824; 29826; 29819; 29823; C1713; J0131; J0171; J0330; J0690; J1100; J1885; J2405; J2704; J2795; J3010; J3490; J7030; J9999

== ENCOUNTER → 2024-11-07 09:22 | Outpatient (BNVA) | payer OTHER, SELFPAY | PROVIDERS: PCP Family Medicine; Visit Provider Student in an Organized Health Care Education/Training Program | DX: Z98.890 Other specified postprocedural states (principal); M25.511 Pain in right shoulder | CPT/HCPCS: 73030 ==

== ENCOUNTER → 2024-12-01 10:11 | Outpatient (BNVA) | payer OTHER, SELFPAY | PROVIDERS: PCP Family Medicine; Visit Provider Family Medicine | DX: Z00.00 Encounter for general adult medical examination without abnormal findings (principal); Z13.1 Encounter for screening for diabetes mellitus; Z13.6 Encounter for screening for cardiovascular disorders; Z51.81 Encounter for therapeutic drug level monitoring | CPT/HCPCS: 80053; 80061; 83036; 85025 ==

== ENCOUNTER → 2024-12-22 12:10 | Outpatient (BNVA) | payer SELFPAY | PROVIDERS: PCP Family Medicine; Visit Provider Family Medicine | DX: R30.0 Dysuria (principal); M54.9 Dorsalgia, unspecified; R31.9 Hematuria, unspecified | CPT/HCPCS: 81000; 87086 ==